=== PATIENT | female | born 1960 | race African-American/Black ===

== ENCOUNTER 2017-06-21 17:47 | Emergency (ER) | payer OTHER ==
[2017-06-21] MEDS ORDERED: Ketorolac Tromethamine 60 MG/2 ML VIAL ONE (17:59)
--- NOTE | 2017-06-21 18:29 | RAD ---
LEFT HIP TWO VIEWS: History: Left hip pain. FINDINGS/IMPRESSION: Mild degenerative changes are seen. No fracture, dislocation, or bony destruction identified. POS: [facility]
--- NOTE | 2017-06-21 18:30 | RAD ---
AP PELVIS: History: Left hip pain. FINDINGS/IMPRESSION: Mild degenerative changes are seen in the hip joints on either side similar to those seen on 11-23-16. No fracture or dislocation or bony destruction are identified. POS: [facility]
== END 2017-06-21 18:35 | disposition home or self-care (01) ==
LOC: NAV ERS 17:47
DX: M62.838 Other muscle spasm (principal); F17.210 Nicotine dependence, cigarettes, uncomplicated; E66.9 Obesity, unspecified
CPT/HCPCS: 72170; 96372; J1885

== ENCOUNTER 2019-12-15 13:44 | Emergency (ER) | payer OTHER ==
[2019-12-15 15:20] LABS: #Lymphocytes 0.8 thou/uL (1.20-3.40); #Monocytes 0.4 thou/uL (0.11-0.59); #Neutrophils 1.4 thou/uL (1.40-6.50); %Basophils 0.6 % (0.0-1.0); %Eosinophils 0.6 % (0.0-10.0); %Lymphocytes 31.5 % (21.0-51.0); %Monocytes 13.8 % (0.0-10.0); %Neutrophils 53.5 % (42.0-75.0); Hemoglobin 10.8 g/dL (12.0-16.0); Mean Corpuscular HGB CONC 30.9 g/dL (32.0-36.0); Mean Corpuscular Hemoglobin 25.8 pg (27.0-31.0); Mean Corpuscular Volume 83.6 fL (78.0-98.0); Mean Platelet Volume 13.6 fL (7.4-10.4); Platelet Count 85 thou/uL (130-400); RBC Distribution Width 13.9 % (11.5-14.5); Red Blood Cell (RBC) Count 4.17 mill/uL (4.20-5.40); White Blood Cell (WBC) Count 2.6 thou/uL (4.8-10.8)
[2019-12-15 15:24] LABS: ALT (SGPT) 18 U/L (8-55); AST (SGOT) 24 U/L (5-34); Albumin 3.8 g/dL (3.5-5.0); Alkaline Phosphatase 98 U/L (40-110); Anion Gap 14 mmol/L (10-20); BUN (Urea Nitrogen) 12 mg/dL (9.8-20.1); Bilirubin, Total 0.8 mg/dL (0.2-1.2); CK (CPK) 178 U/L (29-168); Calc. Creatinine Clearance 0 mL/min (70-130); Calcium 8.4 mg/dL (7.8-10.44); Carbon Dioxide 24 mmol/L (22-29); Chloride 103 mmol/L (98-107); Estimated GFR-MDRD Greater than 90; Globulin 3.5 g/dL (2.4-3.5); Glucose 82 mg/dL (70-105); Potassium 3.4 mmol/L (3.5-5.1); Protein, Total 7.3 g/dL (6.0-8.3); Sodium 138 mmol/L (136-145)
[2019-12-16 20:43] LABS: Iron 23 ug/dL (50-170); Iron Binding Capacity, Total 225 mcg/dL (265-497)
== END 2019-12-15 15:52 | disposition home or self-care (01) ==
LOC: NAV ERS 13:44
DX: R42 Dizziness and giddiness (principal); D72.819 Decreased white blood cell count, unspecified; D69.6 Thrombocytopenia, unspecified; F17.210 Nicotine dependence, cigarettes, uncomplicated; E66.9 Obesity, unspecified
CPT/HCPCS: 80053; 82550; 82728; 83540; 83550; 84484; 85025; 93005; 94760

== ENCOUNTER 2021-10-31 11:52 | Emergency (ER) | payer OTHER | END 2021-10-31 13:10 | disposition home or self-care (01) | LOC: NAV ERS 11:52 | DX: S80.01XA Contusion of right knee, initial encounter (principal); F17.210 Nicotine dependence, cigarettes, uncomplicated; E66.9 Obesity, unspecified; W19.XXXA Unspecified fall, initial encounter; Z68.45 Body mass index [BMI] 70 or greater, adult ==

== ENCOUNTER 2021-12-23 11:22 | Emergency (ER) | payer OTHER | END 2021-12-23 12:04 | disposition home or self-care (01) | LOC: NAV ERS 11:22 | DX: M17.11 Unilateral primary osteoarthritis, right knee (principal); F17.210 Nicotine dependence, cigarettes, uncomplicated; E66.9 Obesity, unspecified; Z68.45 Body mass index [BMI] 70 or greater, adult | CPT/HCPCS: 99283 ==

== ENCOUNTER 2022-01-20 11:47 | Outpatient (CLI) | payer OTHER, SELFPAY | END 2022-01-20 11:48 | disposition home or self-care (01) | LOC: NAV RAD 11:47 | PROVIDERS: ATTEND Nurse Practitioner Family | DX: M25.561 Pain in right knee (principal); M17.11 Unilateral primary osteoarthritis, right knee ==

== ENCOUNTER 2022-03-04 13:20 | Emergency (ER) | payer OTHER ==
[2022-03-04] MEDS ORDERED: Acetaminophen 325 MG TAB ONE (14:15)
[2022-03-04 14:18] LABS: Bilirubin Negative (Negative); Blood, Urine Negative (Negative); Clarity Clear (Clear); Glucose, Urine (Dipstick) Negative (Negative); Ketone, Urine Negative (Negative); Leukocyte Negative (Negative); Nitrite Negative (Negative); Protein, Urine (Dipstick) Negative (Neg-Trace); Urobilinogen 0.2 mg/dL (Less than 2); pH, Urine 5.5 (5.0-9.0)
[2022-03-04 14:23] LABS: Specific Gravity, Urine 1.028 (1.002-1.036)
== END 2022-03-04 15:30 | disposition home or self-care (01) ==
LOC: NAV ERS 13:20
DX: S33.5XXA Sprain of ligaments of lumbar spine, initial encounter (principal); F17.210 Nicotine dependence, cigarettes, uncomplicated; Z79.899 Other long term (current) drug therapy; V89.2XXA Person injured in unspecified motor-vehicle accident, traffic, initial encounter
CPT/HCPCS: 72131; 81003

== ENCOUNTER 2023-01-02 13:14 | Emergency (ER) | payer OTHER ==
[2023-01-02] MEDS ORDERED: Dexamethasone 4 mg/ml Vial ONE (13:46)
== END 2023-01-02 14:27 | disposition home or self-care (01) ==
LOC: NAV ERS 13:14
DX: M17.0 Bilateral primary osteoarthritis of knee (principal); E66.9 Obesity, unspecified; F17.210 Nicotine dependence, cigarettes, uncomplicated
CPT/HCPCS: 96372; 99283; J1100

== ENCOUNTER 2024-03-19 08:44 | Emergency (ER) | payer OTHER ==
[2024-03-19] MEDS ORDERED: Ketorolac Tromethamine 60 MG/2 ML VIAL ONE (09:21)
[2024-03-19 09:51] LABS: Bilirubin Small (Negative); Blood, Urine Negative (Negative); Clarity Clear (Clear); Glucose, Urine (Dipstick) Negative (Negative); Ketone, Urine Trace mg/dL (Negative); Leukocyte Negative (Negative); Nitrite Negative (Negative); Protein, Urine (Dipstick) Negative (Neg-Trace); Specific Gravity, Urine 1.025 (1.005-1.030); pH, Urine 5.5 (5.0-9.0)
[2024-03-19 09:59] LABS: RBC/HPF None Seen HPF (0-3)
[2024-03-19 10:00] LABS: Bacteria/HPF Rare-Few HPF (None Seen); CAUTI Indications for Culture Pelvic or flank pain; Mucous/LPF 2+ LPF (<2+); WBC/HPF 0-3 HPF (0-3)
[2024-03-19 10:01] LABS: Urine Culture Reflex No No
== END 2024-03-19 10:21 | disposition home or self-care (01) ==
LOC: NAV ERS 08:44
DX: M51.369 Other intervertebral disc degeneration, lumbar region without mention of lumbar back pain or lower extremity pain (principal); F17.210 Nicotine dependence, cigarettes, uncomplicated
CPT/HCPCS: 72131; 81001; 96372; J1885

== ENCOUNTER 2025-03-12 11:53 | Outpatient (CLI) | payer MEDICARE, MEDICAID | END 2025-03-12 11:54 | disposition home or self-care (01) | LOC: NAV RAD 11:53 | PROVIDERS: ATTEND Nurse Practitioner Family | DX: M79.605 Pain in left leg (principal) ==